=== PATIENT | female | born 1990 | race Caucasian/White ===

== ENCOUNTER 2020-05-30 18:04 | Emergency (ER) | payer BC ==
[2020-07-08] MEDS ORDERED: PROVERA10 MG PO (15:02)
[2020-07-08] MEDS ORDERED: PROZAC40 MG PO (15:02)
[2020-07-18] MEDS ORDERED: HYDROCODON-ACE1 EAC4 PO (09:21)
[2020-07-18] MEDS ORDERED: IBUPROFEN600 MG PO (09:21)
== END 2020-05-30 19:04 | disposition left against medical advice (07) ==
LOC: ER1 18:04
DX: U07.1 COVID-19 (principal); Z53.21 Procedure and treatment not carried out due to patient leaving prior to being seen by health care provider

== ENCOUNTER 2020-07-01 11:24 | Emergency (ER) | payer BC, OTHER ==
[2020-07-01 12:12] LABS: HEMOGLOBIN 12.9 gm/dl (12.3-15.3); RED BLOOD COUNT 4.36 M/UL (4.00-5.10); WHITE BLOOD COUNT 8.2 K/UL (4.5-11.0)
[2020-07-01 12:41] LABS: BUN/CREATININE RATIO 17 (0-10)
[2020-07-08] MEDS ORDERED: PROVERA10 MG PO (15:02)
[2020-07-08] MEDS ORDERED: PROZAC40 MG PO (15:02)
[2020-07-18] MEDS ORDERED: IBUPROFEN600 MG PO (09:21)
[2020-07-18] MEDS ORDERED: HYDROCODON-ACE1 EAC4 PO (09:21)
== END 2020-07-01 15:45 | disposition home or self-care (01) ==
LOC: ER1 11:24
PROVIDERS: Family Medicine
DX: N93.9 Abnormal uterine and vaginal bleeding, unspecified (principal); R93.89 Abnormal findings on diagnostic imaging of other specified body structures
CPT/HCPCS: 36415; 76830; 80053; 81001; 84703; 85025; 99284

== ENCOUNTER → 2020-07-18 | Day surgery (SDC) | payer BC, OTHER ==
[~2020-07-18] MED LIST: HYDROCODON-ACE1 EAC4 PO; IBUPROFEN600 MG PO; PROVERA10 MG PO; PROZAC40 MG PO
[2020-07-18 08:09] LABS: HEMOGLOBIN 11.7 gm/dl (12.3-15.3); RED BLOOD COUNT 4.16 M/UL (4.00-5.10); WHITE BLOOD COUNT 6.4 K/UL (4.5-11.0)
== END | disposition home or self-care (01) ==
LOC: OR 06:59
PROVIDERS: Obstetrics & Gynecology
DX: N93.9 Abnormal uterine and vaginal bleeding, unspecified (principal); N92.6 Irregular menstruation, unspecified; F41.9 Anxiety disorder, unspecified; F32.9 Major depressive disorder, single episode, unspecified; M19.90 Unspecified osteoarthritis, unspecified site; E66.01 Morbid (severe) obesity due to excess calories; Z68.43 Body mass index [BMI] 50.0-59.9, adult; Z79.899 Other long term (current) drug therapy
CPT/HCPCS: 36415; 81001; 84703; 85025; J1100; J2001; J2250; J2405; J2704; J2795; J3010; J7120

== ENCOUNTER 2020-07-21 09:19 | Emergency (ER) | payer BC, OTHER | END 2020-07-21 10:33 | disposition left against medical advice (07) | LOC: ER1 09:19 | DX: Z53.21 Procedure and treatment not carried out due to patient leaving prior to being seen by health care provider (principal) ==